=== PATIENT | female | born 1970 | race Caucasian/White ===

== ENCOUNTER 2021-04-25 15:41 | Outpatient (CLI) | payer OTHER, SELFPAY ==
--- NOTE | ~2021-04-25 | MM_ITS ---
EXAMINATION: MM screening sanjeev BI w luiz HISTORY: Screening TECHNIQUE: Craniocaudal and mediolateral oblique 3-D tomosynthesis images were obtained and synthetic 2-D images were generated. CAD analysis was submitted and interpreted. COMPARISON: No prior mammogram is available for comparison at this institution. BREAST PARENCHYMAL COMPOSITION: There are scattered areas of fibroglandular density. FINDINGS: There is a 5 mm mass in the upper central aspect of the right breast. There are no suspicio us masses, calcifications or architectural distortion in the left breast to suggest malignancy. There are changes of prior surgery from breast reduction. IMPRESSION: 1. Right breast mass measuring 5 mm in the upper central breast. 2. Additional mammographic views and possible breast ultrasound are recommended. BI-RADS Category 0: Incomplete: Needs additional imaging evaluation. Reviewed, dictated and finalized at location A. IMPRESSION: 1. Right breast mass measuring 5 mm in the upper central breast. 2. Additional mammographic views and possible breast ultrasound are recommended . BI-RADS Category 0: Incomplete: Needs additional imaging evaluation.
== END 2021-04-25 15:42 | disposition home or self-care (01) ==
LOC: ANHIMG 15:43
PROVIDERS: PCP Family Medicine; Visit Provider Family Medicine
DX: Z12.31 Encounter for screening mammogram for malignant neoplasm of breast (principal); R92.8 Other abnormal and inconclusive findings on diagnostic imaging of breast
CPT/HCPCS: 77063; 77067

== ENCOUNTER 2021-05-15 13:34 | Outpatient (CLI) | payer OTHER, SELFPAY ==
--- NOTE | ~2021-05-15 | MMUS_ITS ---
EXAMINATION: MM diagnostic sanjeev RT w luiz, US breast RT limited HISTORY: Right breast mass on screening mammogram TECHNIQUE: Additional 3-D tomosynthesis images of the right breast were performed and synthetic 2-D i mages were generated. CAD analysis was submitted and interpreted. High resolution limited right breas t ultrasound was performed. COMPARISON: 04/25/2021 FINDINGS: MAMMOGRAPHIC FINDINGS: There is a 6 mm oval, circumscribed, equal density mass in the middle third of the breast at the 12:0 0 location 6 cm from the nipple. There is subtle architectural distortion just posterior to the mass which may relate to prior reduction mammoplasty. ULTRASOUND: There is a 14 mm x 3 mm oval, circumscribed, parallel, hypoechoic mass with no posterior features or internal vascularity at the 11:00 location 2 cm from the nipple. IMPRESSION: 1. Probably benign right breast mass and architectural distortion. 2. Recommend 6 month follow-up right diagnostic mammogram and ultrasound. BI-RADS category 3, probably benign findings. Reviewed, dictated and finalized at location A. IMPRESSION: 1. Probably benign right breast mass and architectural distortion. 2. Recommend 6 month follow-up right diagnostic mammogram and ultrasound. BI-RADS category 3, probably benign findings.
== END 2021-05-15 13:35 | disposition home or self-care (01) ==
LOC: ANHIMG 13:37
PROVIDERS: PCP Family Medicine; Visit Provider Family Medicine
DX: R92.8 Other abnormal and inconclusive findings on diagnostic imaging of breast (principal)
CPT/HCPCS: 76642; 77061; 77065; G0279

== ENCOUNTER 2021-06-05 01:20 | Day surgery (SDC) | payer OTHER, SELFPAY ==
[2021-05-31 13:22] VITALS: BMI 25.0
--- NOTE | 2021-06-05 09:32 | P.PNAN_ITS ---
Anes - Initial Pre Proc Eval Procedure: Operation Date: 06/05/21 11:30 Proposed Procedures p Screening Colonoscopy - Jaiden Myers MD Date/Time: 06/05/21 09:32 Surgeon: Jaiden Myers MD Pre Op Diagnosis: neoplasm screening Patient Data Age: 51 Gender: F Height: 1.7 m Weight: 72.5 kg Allergies Allergy/AdvReac Type Severity Reaction Status Date / Time No Known Allergies Allergy Verified 06/05/21 10:27 Home Medications Medication Instructions Recorded Confirmed Type Calcium 600 + D(3) 1 tab-cap PO DAILY 05/31/21 06/05/21 History L.acid-L.casei-B.bif-B.demond-FOS 1 cap PO DAILY 05/31/21 06/05/21 History [Probiotic Blend] choline bitartrate 650 mg PO DAILY 05/31/21 06/05/21 History chromium 1 tablet PO DAILY 05/31/21 06/05/21 History melatonin 10 mg PO HS 05/31/21 06/05/21 History multivit with min-folic acid 1 tablet PO DAILY 05/31/21 06/05/21 History [Adult Multivitamin Gummies] Patient hx anesthesia problems: none Family hx anesthesia problems: none Results Review: All pre-operative results and documents have been reviewed as part of the pre-operative evaluation. [facility] [place] Past Medical History Medical History (Updated 06/05/21 @ 10:44 by Jaiden Myers MD) Breast mass, right Hyperlipemia Social History Social History Smoking status: Never smoker Alcohol intake: current Drinks per week: 3 Substance use: never Substance use type: does not use Living arrangements: with family Spiritual care concerns: No Anes - Eval Final PreProcedure Day of Procedure 06/05/21 09:32 Patient weight: normal Heart: regular rate and rhythm Lungs: clear to auscultation and normal air movement Airway: Mallampati scale class II Neurological: alert and oriented Last oral intake: >/= 8 hours ASA classification: II Emergent: no Anesthetic plan: proceed Anesthesia type and monitoring: general GIVS Results Review: All pre-operative results and documents have been reviewed as part of the pre-operative evaluation. Informed Consent: The patient's anesthetic plan and its attendant risks and benefits were discussed with the patient/family/POA. Questions were solicited and answers provided to the satisfaction of the patient/family/POA.
[2021-06-05 10:28] VITALS: BP 114/91; PULSE 98; RESP 16; TEMP 36.2; O2SAT 99
[2021-06-05] MEDS: LACTATED RINGERS 1,000 ML 150 ML IV CONT (10:37)
--- NOTE | 2021-06-05 10:43 | WPDGICN ---
Assessment and Plan Assessment and plan (1) Encounter for screening colonoscopy: Code(s): Z12.11 - Encounter for screening for malignant neoplasm of colon Status: Acute Assessment and Plan: Patient presents for screening colonoscopy. She appears to be at average risk for colon polyps. GI Consult Note Consult date/time: 06/05/21 10:43 HPI: Subha Brooks is a 51 year old female Presents for screening colonoscopy. Patient reports that her current weight appetite and bowel movements are normal. She denies abdominal pain. She has had no bleeding. Family history is noncontributory. Patient presents today for neoplasia screening colonoscopy. Review of Systems Review of Systems: All systems reviewed & are unremarkable except as noted in HPI and below PMFSH Past Medical History Medical History (Updated 06/05/21 @ 10:44 by Jaiden Myers MD) Breast mass, right Hyperlipemia Social History Social History Smoking status: Never smoker Alcohol intake: current Drinks per week: 3 Substance use: never Substance use type: does not use Living arrangements: with family Spiritual care concerns: No Meds Home Medications and Allergies Home Medications Medication Instructions Recorded Confirmed Type Calcium 600 + D(3) 1 tab-cap PO DAILY 05/31/21 06/05/21 History L.acid-L.casei-B.bif-B.demond-FOS 1 cap PO DAILY 05/31/21 06/05/21 History [Probiotic Blend] choline bitartrate 650 mg PO DAILY 05/31/21 06/05/21 History chromium 1 tablet PO DAILY 05/31/21 06/05/21 History melatonin 10 mg PO HS 05/31/21 06/05/21 History multivit with min-folic acid 1 tablet PO DAILY 05/31/21 06/05/21 History [Adult Multivitamin Gummies] Allergies Allergy/AdvReac Type Severity Reaction Status Date / Time No Known Allergies Allergy Verified 06/05/21 10:27 Vital Signs Vital Signs - 24 hr 06/05/21 10:28 Temperature 97.2 F L Pulse Rate 98 Respiratory Rate 16 Blood Pressure 114/91 H Pulse Oximetry 99 Exam Narrative: Physical exam reveals patient to be alert. Vital signs stable. HEENT exam is unremarkable. Patient is anicteric. Lungs are clear to auscultation and to percussion. Heart is without murmur or extra sounds. Abdominal exam bowel sounds present soft nontender with no hepatosplenomegaly. Digital external rectal exam is normal.
[2021-06-05 11:37] VITALS: BP 94/64; PULSE 83; RESP 20; O2SAT 96
[2021-06-05 11:47] VITALS: BP 109/78; PULSE 100; RESP 26; O2SAT 100
[2021-06-05 11:57] VITALS: BP 122/84; PULSE 82; RESP 19; O2SAT 100
== END 2021-06-05 12:02 | disposition home or self-care (01) ==
PROVIDERS: PCP Family Medicine; Visit Provider Internal Medicine Gastroenterology
PROC: 0DJD8ZZ Inspection of Lower Intestinal Tract, Via Natural or Artificial Opening Endoscopic (ICD-10-PCS; CPT 45378; principal; 2021-06-05 11:30)
DX: Z12.11 Encounter for screening for malignant neoplasm of colon (principal); E78.2 Mixed hyperlipidemia
CPT/HCPCS: 45378; J2704; J7120